=== PATIENT | female | born 1960 | race Caucasian/White ===

== ENCOUNTER 2017-05-22 08:37 | Emergency (ER) | payer BC ==
--- NOTE | 2017-05-22 08:55 | UC ---
Skin Complaint HPI - HPI Summary HPI Summary: 56 year old with cat bite. Right leg pain , redness at cat bite puncture wounds onset yesterday AM. Pt 's cat is outdoor cat and is not vaccinated. Last Tdap 2 years ago . Redness spreading at this time. No streaking. no discharge. pt is a nurse. [ End ] - History of Current Complaint Time Seen by Provider: 05/22/17 08:54 Stated Complaint: CAT BITE-RT LEG Hx Obtained From: Patient Onset/Duration: Sudden Onset Timing: Constant Onset Severity: Mild Current Severity: Moderate - Allergy/Home Medications Allergies/Adverse Reactions: Allergies Allergy/AdvReac Type Severity Reaction Status Date / Time No Known Allergies Allergy Verified 05/22/17 08:56 Home Medications: Home Medications Acetaminophen TAB* [Tylenol TAB*] 650 mg PO ONCE PRN 05/22/17 [History Confirmed 05/22/17] Review of Systems Skin: Other - cat bite Is Patient Immunocompromised?: No All Other Systems Reviewed And Are Negative: Yes PMH/Surg Hx/FS Hx/Imm Hx Previously Healthy: Yes - Surgical History Surgical History: None Surgery Procedure, Year, and Place: CERVICAL--2008 - Family History Known Family History: Positive: None - Social History Occupation: Employed Full-time Alcohol Use: Occasionally Substance Use Type: None Smoking Status (MU): Never Smoked Tobacco Type: Cigarettes When Did the Patient Quit Smoking/Using Tobacco: 2009 - Immunization History Most Recent Influenza Vaccination: FEBRUARY 2013 Most Recent Tetanus Shot: unknown Hx Tetanus, Diphtheria Vaccination: Yes Vaccination Up to Date: Yes Physical Exam Triage Information Reviewed: Yes Appearance: Well-Appearing, No Pain Distress, Well-Nourished Vital Signs Reviewed: Yes Eye Exam: Normal ENT Exam: Normal Respiratory Exam: Normal Cardiovascular Exam: Normal Musculoskeletal Exam: Normal Neurological Exam: Normal Psychological Exam: Normal Skin: Positive: Other - right distal lower extremity with erythema 5x4 cm laterally . no discharge. no streaking. 2 puncture wounds present. no homans sign. does not extend to the ankle or foot. Course/Dx - Course Course Of Treatment: UTD with Tdap. Rocephin at this time to prevent progression of cellulitis. If Sx persist or worsen she is awre to to go ED.. She is a nurse and agreeable with plan. Discussed wound care as well. - Diagnoses Provider Diagnoses: cellulitis from cat bite right leg Discharge - Discharge Plan Condition: Good Disposition: HOME Patient Education Materials: Animal Bite (ED) Referrals: Shamika Daly PA [Primary Care Provider] - 4 Days
[2017-05-22 08:56] VITALS: BP 113/81
[2017-05-22] MEDS ORDERED: cefTRIAXone VIAL(*) 1,000 MG VIAL IM ONE (09:05)
[2017-05-22] MEDS ORDERED: Lidocaine 1% MPF* 2 ML VIAL ONE (09:08)
[2017-05-22] MEDS ORDERED: Lidocaine 1% INJ* 10 MG/ML 30 ML SDV INJ ONE (09:09)
== END 2017-05-22 09:40 | disposition home or self-care (01) ==
LOC: UCCORT 08:37
DX: S81.851A Open bite, right lower leg, initial encounter (principal); L03.90 Cellulitis, unspecified; W55.01XA Bitten by cat, initial encounter; Y93.9 Activity, unspecified; Z87.891 Personal history of nicotine dependence; Z72.89 Other problems related to lifestyle; Y92.9 Unspecified place or not applicable
CPT/HCPCS: 96372; 99212; G0463; J0696

== ENCOUNTER 2019-07-18 14:27 | Emergency (ER) | payer BC ==
[2019-07-18 14:55] VITALS: BP 134/75
--- NOTE | 2019-07-18 15:19 | UC ---
Abdominal Pain Female HPI - HPI Summary HPI Summary: 58-year-old female presents with 3 week history of intermittent mild right lower quadrant pain, urinary frequency, and occasional "sour" smell to her urine. Denies fever, chills, nausea, vomiting, diarrhea, blood in stool, dysuria, urgency, hematuria, vaginal discharge, or abnormal vaginal bleeding. - History of Current Complaint Chief Complaint: UCGU Stated Complaint: UTI SYMPTOMS Time Seen by Provider: 07/18/19 14:57 Hx Obtained From: Patient Hx Last Menstrual Period: 5 yrs Pain Intensity: 2 Allergies/Adverse Reactions: Allergies Allergy/AdvReac Type Severity Reaction Status Date / Time No Known Allergies Allergy Verified 07/18/19 14:50 Home Medications: Home Medications NK [No Home Medications Reported] 07/18/19 [History Confirmed 07/18/19] PMH/Surg Hx/FS Hx/Imm Hx Previously Healthy: Yes - Denies significant PMH - Surgical History Surgical History: Yes Surgery Procedure, Year, and Place: CERVICAL--2007 - Family History Known Family History: Negative: Cardiac Disease, Hypertension - Social History Occupation: Employed Full-time Lives: With Family Alcohol Use: Weekly Substance Use Type: None Smoking Status (MU): Former Smoker Type: Cigarettes When Did the Patient Quit Smoking/Using Tobacco: 2009 - Immunization History Most Recent Influenza Vaccination: FEBRUARY 2013 Most Recent Tetanus Shot: unknown Hx Tetanus, Diphtheria Vaccination: Yes Vaccination Up to Date: Yes Review of Systems All Other Systems Reviewed And Are Negative: Yes Constitutional: Negative: Fever, Chills Respiratory: Positive: Negative Cardiovascular: Positive: Negative Gastrointestinal: Positive: Abdominal Pain. Negative: Vomiting, Diarrhea, Nausea Genitourinary: Positive: Frequency. Negative: Dysuria, Hematuria, Urgency, Vaginal/Penile Discharge, Abnormal Bleeding Musculoskeletal: Positive: Negative Neurological/Mental Status: Positive: Negative Is Patient Immunocompromised?: No Physical Exam - Summary Physical Exam Summary: GENERAL APPEARANCE: Well developed, well nourished, alert and cooperative, adult female who appears to be in no acute distress. CARDIAC: Normal S1 and S2. No S3, S4 or murmurs. Rhythm is regular. There is no peripheral edema, cyanosis or pallor. Extremities are warm and well perfused. Capillary refill is less than 2 seconds. Peripheral pulses intact. LUNGS: Clear to auscultation without rales, rhonchi, wheezing or diminished breath sounds. ABDOMEN: Positive bowel sounds. Soft, nondistended, nontender. No guarding or rebound. No masses or hepatosplenomegally. No CVA tenderness. MUSKULOSKELETAL: ROM intact to all extremities. No joint erythema or tenderness. Normal muscular development. Normal gait. SKIN: Skin normal color, texture and turgor with no lesions or eruptions. Triage Information Reviewed: Yes Vital Signs: Initial Vital Signs Temp 97.8 F 07/18/19 14:51 Pulse 75 07/18/19 14:51 Resp 12 07/18/19 14:51 BP 134/75 07/18/19 14:51 Pulse Ox 100 07/18/19 14:51 Vital Signs Reviewed: Yes Abd Pain Female Course/Dx - Course Course Of Treatment: 58-year-old female presents with 3 week history of intermittent mild right lower quadrant pain, urinary frequency, and occasional "sour" smell to her urine. Denies fever, chills, nausea, vomiting, diarrhea, blood in stool, dysuria, urgency, hematuria, vaginal discharge, or abnormal vaginal bleeding. Afebrile. Mildly hypertensive otherwise vital signs stable. Patient had a soft , nondistended, nontender abdomen without CVA tenderness and remainder of exam was unremarkable. [id number] urinalysis showed 2+ blood and trace protein but no evidence of infection. Urine culture pending. Reviewed results with the patient. We discussed that based on her history and the presence of blood in the urine that I suspect she may have a kidney stone however I did not have imaging available to me to evaluate her for this or other potential causes including appendicitis, diverticulitis, or ovarian cyst. We discussed evaluation in the ER versus watchful waiting pending the urine culture results and the patient is electing for the latter which I feel is reasonable considering her mild symptoms and benign exam. She is to follow-up with her primary care provider in 3 days if symptoms are not improving. Anticipatory guidance and warning symptoms requiring immediate evaluation in the emergency room were reviewed with the patient. Verbalizes understanding and agrees with plan of care. - Differential Dx/Diagnosis Differential Diagnosis: Appendicitis, Diverticulitis, Ovarian Cyst, Renal Colic , Urinary Tract Infection Provider Diagnosis: Right lower quadrant abdominal pain Discharge ED - Sign-Out/Discharge Documenting (check all that apply): Patient Departure All imaging exams completed and their final reports reviewed: No Studies - Discharge Plan Condition: Stable Disposition: HOME Patient Education Materials: Acute Abdominal Pain (ED) Referrals: Shamika Daly PA [Primary Care Provider] - 3 Days Additional Instructions: The urine test performed in the clinic today showed the presence of some blood but no evidence of a urinary tract infection. We will send the urine for culture to see if any bacteria grows out and if so we'll contact you and start to on an appropriate antibiotic. Review history of intermittent right lower quadrant pain and the presence of blood in your urine your symptoms could suggest a kidney stone however I do not have the imaging available to evaluate you for this or other causes including appendicitis or ovarian cyst. As we discussed, because your symptoms are mild I do feel that taking a watchful waiting approach is appropriate at this time pending the urine culture results. Be sure to continue to drink plenty of fluids. Follow-up with your primary care provider in 3 days if symptoms are not improving. Seek immediate medical attention in the emergency room if you develop fever greater than 100.5 F, have worsening abdominal pain, persistent vomiting, abnormal vaginal bleeding, or any worsening of symptoms. - Billing Disposition and Condition Condition: STABLE Disposition: Home
== END 2019-07-18 15:40 | disposition home or self-care (01) ==
LOC: UCCORT 14:27
DX: R10.31 Right lower quadrant pain (principal); R35.0 Frequency of micturition; Z87.891 Personal history of nicotine dependence
CPT/HCPCS: 81003; 87086; 99211; G0463